=== PATIENT | male | born 1980 | race Caucasian/White ===

== ENCOUNTER 2016-10-14 18:08 | Emergency (ER) | payer MEDICAID ==
[2016-10-14 18:17] VITALS: TEMP 97
--- NOTE | 2016-10-14 18:25 | EDPHY ---
H & P Stated Complaint: Per EMS pt fell after drinking ETOH HPI/ROS: Chief Complaint: Alcohol intoxication HPI: 36-year-old male who was found at the bottom of outside stairs of an apartment complex intoxicated. Patient passed out. Per EMS patient denied having fallen down the stairs and states that he sat down there. They did find a half empty bottle of malt liquor beside him with the lid closed. Is unable to ambulate on their own. Patient brought in by EMS for further evaluation. No obvious signs of trauma per EMS. Remainder of history is unobtainable secondary to the patient's intoxication. ROS: Unobtainable secondary to the patient's intoxication PMH: Unknown Medications: Unknown Allergies: Unknown Social History: Positive for alcohol Family History: non-contributory Physical Exam: Gen: Somnolent, responds to painful stimuli, maintaining airway, smells of alcohol. HEENT: Atraumatic Nose: no epistaxis or deformity Eyes: PERRLA, EOMI Mouth: Moist mucosa Neck: Supple, no step-offs or deformity Chest: Atraumatic, lungs clear to auscultation Heart: S1, S2 normal, no murmur Abd: Soft, non-tender, no guarding Back: Atraumatic Ext: no edema, atraumatic Skin: no rash Neuro: Sensation grossly intact, Strength 5/5 in bilateral upper and lower extremities - Personal History Current Tetanus/Diphtheria Vaccine: Unsure Current Tetanus Diphtheria and Acellular Pertussis (TDAP): Unsure - Medical/Surgical History Other PMH: Pt refuses to answer - Social History Smoking Status: Unknown if ever smoked Constitutional: Initial Vital Signs Temperature (C) 36.1 C 10/14/16 18:12 Heart Rate 82 10/14/16 18:12 Respiratory Rate 20 10/14/16 18:12 Blood Pressure 109/63 10/14/16 18:12 O2 Sat (%) 94 10/14/16 18:12 O2 Delivery Mode Room Air Allergies/Adverse Reactions: Unable to Assess Allergy (Unverified 10/14/16 18:16) Home Medications: Medication Instructions Recorded Unobtainable 10/14/16 Medical Decision Making ED Course/Re-evaluation: Patient is now awake and appropriate. Ambulating unassisted to the bathroom. No current complaints. He has no headache. There is no signs of trauma. Is no evidence that he fell down the stairs the patient denies falling. Medically cleared for fdc. Departure - Departure Disposition: Home, Routine, Self-Care Clinical Impression: Alcoholic intoxication Condition: Good Instructions: Alcohol Intoxication (ED) Additional Instructions: Medically clear for fdc. Please try to decrease your alcohol consumption. Referrals: [facility],. [Clinic] - As per Instructions
[2016-10-14 20:19] VITALS: RESP 16
[2016-10-14 22:01] VITALS: BP 132/74; PULSE 82; O2SAT 98
== END 2016-10-14 21:56 | disposition home or self-care (01) ==
DX: F10.129 Alcohol abuse with intoxication, unspecified (principal)